=== PATIENT | female | born 1945 | race Caucasian/White ===

== ENCOUNTER → 2025-01-05 13:14 | Outpatient (REF) | payer MEDICARE, OTHER, SELFPAY | LOC: WDC 13:14 | PROVIDERS: ATTENDING PHYSICIAN Student in an Organized Health Care Education/Training Program; FAMILY PHYSICIAN Internal Medicine | DX: Z12.31 Encounter for screening mammogram for malignant neoplasm of breast (principal) | CPT/HCPCS: 77063; 77067 ==

== ENCOUNTER 2025-01-23 18:08 | Emergency (ER) | payer MEDICARE, OTHER, SELFPAY ==
[2025-01-23 18:14] VITALS: BP 148/70
[2025-01-23 20:51] VITALS: BMI 34.9
[2025-01-23 20:54] LABS: % Basophils 0.3 % (0-2); % Immature Granulocytes 0.1 % (0-0.5); % Lymphocytes 22.4 % (20.5-51.1); % Monocytes 5.8 % (1.7-9.3); % Neutrophils 69.4 % (42.2-75.2); Absolute Eosinophils 0.1 10^3/uL (0-0.7); Absolute Lymphocytes 1.6 10^3/uL (1.2-3.4); Absolute Monocytes 0.4 10^3/uL (0.1-0.6); Absolute Neutrophils 4.8 10^3/uL (1.4-6.5); Hematocrit 33.6 % (37.0-47.0); Hemoglobin 11.2 g/dL (12.0-16.0); Mean Corp Hgb Conc. 33.3 g/dL (33.0-37.0); Mean Corpuscular Hgb 29.6 pg (27.0-31.0); Mean Corpuscular Volume 88.7 fL (81.0-99.0); Mean Platelet Volume 9.3 fL (7.4-10.4); Nucleated Red Blood Cells % 0 %; Platelet Count 213 10^3/uL (130-400); Red Blood Cell Count 3.79 10^6/uL (4.20-5.40); Red Cell Dist. Width 13.5 % (11.5-14.5)
[2025-01-23 21:09] LABS: ALT (SGPT) 18 U/L (0-35); AST (SGOT) 20 U/L (14-36); Albumin 4.5 g/dl (3.5-5.0); Alkaline Phosphatase 93 U/L (38-126); Blood Urea Nitrogen 27 mg/dl (7-17); Calcium 10.1 mg/dl (8.4-10.2); Carbon Dioxide 27 mmol/L (22-30); Chloride 102 mmol/L (98-107); Estimated Creatinine Clearance 32 ml/min; Glucose 104 mg/dl (70-99); Magnesium 2.3 mg/dl (1.6-2.3); Potassium 4.4 mmol/L (3.5-5.1); Sodium 138 mmol/L (135-145); Total Bilirubin 0.5 mg/dl (0.2-1.3); Total Protein 7.6 g/dl (6.3-8.2); eGFR 46.62
[2025-01-23 21:21] LABS: Troponin I < 0.012 ng/ml
[2025-01-23 21:43] VITALS: BP 117/74
[2025-01-23] MEDS: MAALOX 40 PO (22:35)
--- NOTE | 2025-01-23 22:55 | ED.GENMED ---
History of Present Illness
General
Chief Complaint: Back Pain
Source: patient
Exam Limitations: none and other (Dutch speaker rerecording mixer used)
Time Seen by Provider: 01/23/25 19:37
Nursing documentation reviewed up to this point in time: agreed with
History of Present Illness
History of Present Illness:
79-year-old female presenting to the emergency department today with concerns of a burning discomfort initially to the chest now up to the upper back. Previously seen in urgent care yesterday had imaging without emergent findings. Denies any
nausea vomiting shortness of breath.
Past History
Past History
ED Past Medical History: GERD and HTN
ED Past Surgical History: None
Social History
Tobacco: Non-smoker
Alcohol: None
Drug: None
Personal:
Living: with family
Employment: Employed
Family History
Family History: Negative Early CAD
Review of Systems
Review of Systems
Allergies reviewed?: Yes
All Other Systems: ROS reviewed and negative except as documented in HPI and ROS
Phy Exam
Physical Exam
Physical Exam:
GENERAL: Alert , in no apparent distress
EYE: pupils equal and reactive
NECK: Supple, no significant adenopathy.
ENT: o/p clr, mmm.
CARDIAC: Regular rate and rhythm .
LUNGS: Clear breath sounds bilaterally, no acute respiratory distress, no wheezes/rales/rhonchi
ABDOMEN: Soft, without focal tenderness, no r/g, no cvat
NEUROLOGICAL: Alert and oriented, no focal neuro deficits
SKIN: Warm and dry, skin intact.
MUSCULOSKELETAL: No edema, well perfused.
PSYCH: Normal and appropriate interaction.
Course
Orders/Labs/Results
Orders:
Orders
01/23/25 20:27
Electrocardiogram (*1) Stat
Reason for Study: Other
Other Reason for Exam: chest pain
EKG- Treatment ONCE
01/23/25 20:39
Complete Blood Count/With Diff Urgent
Comprehensive Metabolic Panel Urgent
Magnesium Urgent
Troponin I Urgent
01/23/25 22:23
Mag Hydrox/Al Hydrox/Simeth [Maalox] 30 ml Phenobarb/Hyoscy/Atropine/Scop [] 10 ml PO NOW
01/23/25 22:29
Mag Hydrox/Al Hydrox/Simeth [Maalox] 30 ml .ROUTE .STK-MED ONE
Phenobarb/Hyoscy/Atropine/Scop [] 10 ml .ROUTE .STK-MED ONE
Abnormal Lab Results
01/23/25
20:39
RBC 3.79 L 10^6/uL
(4.20-5.40)
Hgb 11.2 L g/dL
(12.0-16.0)
Hct 33.6 L %
(37.0-47.0)
BUN 27 H mg/dl
(7-17)
Creatinine 1.2 H mg/dL
(0.6-1.0)
Glucose 104 H mg/dl
(70-99)
01/23/25 20:39
01/23/25 20:39
Vital Signs
Initial and Last Documented VS:
Initial Vital Signs
Temp Pulse Resp BP Pulse Ox
98.6 F 71 18 148/70 98
01/23/25 18:14 01/23/25 18:14 01/23/25 18:14 01/23/25 18:14 01/23/25 18:14
Last Documented Vital Signs
Temp Pulse Resp BP Pulse Ox
98.6 F 68 16 117/74 98
01/23/25 18:14 01/23/25 21:43 01/23/25 21:43 01/23/25 21:43 01/23/25 21:43
MDM/Problems Addressed
MDM/Problems Addressed:
79-year-old female presenting to the emergency department today with concerns of a burning discomfort mainly to her mid upper back initially had some discomfort to the chest area that she thought was reflux. Ongoing for 3 days. Feels almost like a
sunburn she claims. Imaging was done at urgent care yesterday without emergent findings. Vital signs normal on arrival here. Patient no distress normal physical examination no signs of rash no evidence of shingles. Labs unremarkable troponin
negative EKG without emergent findings. Patient was given a GI cocktail with significant improvement of symptoms. She was advised for close outpatient follow-up but otherwise stable for discharge. Return precautions given.
*Critical Care Note
Total Time (30-74mins, 75-104mins- exclusive of procedures): Not Applicable
ED Attending Note
-
Portions of this chart may have been created with voice recognition software.� Occasional wrong word or��sound alike� substitutions may have occurred due to the inherent limitations of voice recognition software.
Discharge Plan
Departure
Patient Disposition: Home (Routine Discharge)
Date of Disposition: 01/23/25
Time of Disposition: 23:17
Patient with high blood pressure during this ER visit?: No
Condition: Good
Covid-19: Not Applicable
Discharge Problem:
Back pain
Instructions: Upper Back Pain (DC)
Prescriptions:
New
famotidine 20 mg tablet
20 mg PO BID 7 Days Qty: 14 0RF
No Action
losartan 50 MG tablet
80 mg PO DAILY
bupropion HCl [Wellbutrin SR] 150 MG tablet sustained-release 12 hr
150 mg PO DAILY
metoprolol tartrate 50 MG tablet
50 mg PO DAILY
fluoxetine 20 MG capsule
40 mg PO DAILY
valsartan [Diovan] 160 MG capsule
160 mg PO DAILY Qty: 14 0RF
omeprazole magnesium [Prilosec OTC] 20 MG tablet,delayed release (DR/EC)
20 mg PO DAILY Qty: 20 0RF
dicyclomine 10 MG capsule
10 mg PO QIDPRN PRN (Reason: pain) Qty: 10 0RF
Referrals:
Wesley Whitlock MD [Family Provider] -
Bree Jaquez DO [Active] - Call in 1-3 days for appt
Activity Restrictions/Additional Instructions:
You came to the emergency department today with concerns of a burning discomfort. This seemed to improve with a GI cocktail making a a GI cause much more likely. Otherwise your labs did not show any emergent findings. Your cardiac workup was
normal. Please follow closely with your primary care doctor and GI. Return for any worsening, new or concerning symptoms.
Interventions
Interventions:
*Risk Screen - Suicide Last Done: 01/23/25 20:51
*General Assessment Last Done: 01/23/25 20:51
*Neglect/Abuse Screening Last Done: 01/23/25 20:51
*ED COVID-19 Vaccine History Last Done: 01/23/25 18:14
ED-Musculoskeletal Assessment Last Done: 01/23/25 20:51
Discharge Date and Time
Print Language: UPPER SORBIAN
== END 2025-01-24 00:01 | disposition home or self-care (01) ==
LOC: EMR 18:08
PROVIDERS: Physician Assistant; EMERGENCY PHYSICIAN Student in an Organized Health Care Education/Training Program; FAMILY PHYSICIAN Internal Medicine
DX: M54.9 Dorsalgia, unspecified (principal)
CPT/HCPCS: 99284; 80053; 83735; 84484; 85025; 93005

== ENCOUNTER 2025-02-13 18:33 | Emergency (ER) | payer MEDICARE, OTHER, SELFPAY ==
[2025-02-13 18:43] VITALS: BP 157/75
[2025-02-13 18:54] LABS: % Basophils 0.4 % (0-2); % Eosinophils 1.5 % (0-6); % Lymphocytes 23.6 % (20.5-51.1); % Monocytes 8.7 % (1.7-9.3); % Neutrophils 65.8 % (42.2-75.2); Absolute Eosinophils 0.1 10^3/uL (0-0.7); Absolute Lymphocytes 1.1 10^3/uL (1.2-3.4); Absolute Monocytes 0.4 10^3/uL (0.1-0.6); Absolute Neutrophils 3.1 10^3/uL (1.4-6.5); Hemoglobin 10.5 g/dL (12.0-16.0); Mean Corp Hgb Conc. 33.9 g/dL (33.0-37.0); Mean Corpuscular Hgb 29.4 pg (27.0-31.0); Mean Corpuscular Volume 86.8 fL (81.0-99.0); Mean Platelet Volume 9.1 fL (7.4-10.4); Nucleated Red Blood Cells % 0 %; Platelet Count 186 10^3/uL (130-400); Red Blood Cell Count 3.57 10^6/uL (4.20-5.40); Red Cell Dist. Width 13.8 % (11.5-14.5); White Blood Cell Count 4.7 10^3/uL (4.8-10.8)
[2025-02-13 19:00] VITALS: BP 150/56
--- NOTE | 2025-02-13 19:00 | ED.GENMED ---
History of Present Illness
General
Chief Complaint: Fall
Source: patient, family (son at bedside) and per diem interpreter (Language line [id number])
Exam Limitations: none
Time Seen by Provider: 02/13/25 18:59
Nursing documentation reviewed up to this point in time: agreed with
History of Present Illness
History of Present Illness:
79 yo female with h/o HTN, GERD, Depression presents per son, for no appetite past week, every time she eats she vomits. Weight loss of 15-20 lbs past 3 weeks. Nausea. Pt states 'my esophagus hurts day and night' 'and the pain radiates to my back.'
She has been constipated, last normal BM after MOM one week ago, had very small BM this a.m.
Saw PCP 3 weeks ago for similar symptoms. Started on Protonix and Famotidine.
Past History
Past History
ED Past Medical History: GERD and HTN
ED Past Surgical History: None
Social History
Tobacco: Non-smoker
Alcohol: None
Drug: None
Personal:
Living: with family
Employment: Employed
Family History
Family History: Negative Early CAD
Review of Systems
Review of Systems
Allergies reviewed?: Yes
All Other Systems: ROS reviewed and negative except as documented in HPI and ROS
Constitutional: Reports weight loss; Denies fever or chills
EENT: Denies sore throat
Respiratory: Denies cough or trouble breathing
Cardiac: Denies chest pain or palpitations
ABD/GI: Reports abdominal pain, nausea, constipated and anorexia; Denies vomiting, diarrhea, bloody stools or black stools
: Denies dysuria, frequency, difficulty voiding or urgency
Musculoskeletal: Reports no symptoms
Skin: Reports no symptoms
Neurological: Reports no symptoms
Phy Exam
Physical Exam
Physical Exam:
GENERAL: No acute distress. A&Ox3.
CONSTITUTIONAL: Afebrile.
EYES: clear, conjunctivae normal
ENMT: moist mucus membranes, Pharynx nl
RESPIRATORY: Regular respirations, nonlabored, lungs clear.
CARDIOVASCULAR: Regular rate and rhythm, no murmurs, no rubs.
GI: Soft, generally mildly tender, normal BS
MUSCULOSKELETAL: Moves with ease. Well perfused.
SKIN: Warm, dry, pink
PSYCH: Anxious mood and affect. Well kept, interactive and appropriate
NEUROLOGIC: Awake, alert and oriented. No focal neurological deficits
Course
Orders/Labs/Results
Orders:
Orders
02/13/25 18:35
Electrocardiogram (*1) Urgent
Reason for Study: Vertigo / Dizzy
EKG- Treatment ONCE
02/13/25 18:41
CMP [Comprehensive Metabolic Panel] Urgent
Complete Blood Count/With Diff Urgent
Lipase Urgent
Comment: ADD ON
Troponin I Urgent
02/13/25 19:24
Add On- LAB Urgent
Tests Added?: Lipase
CT Abd/Pel (IV only)-DH only Urgent
Comment:
Reason For Exam: constipation, abdominal pain, vomiting
02/13/25 19:43
Urinalysis Reflex To Culture Urgent
Date Specimen was Collected: 02/13/25
Time Specimen was Collected: 19:42
Abnormal Lab Results
02/13/25
18:41
WBC 4.7 L 10^3/uL
(4.8-10.8)
RBC 3.57 L 10^6/uL
(4.20-5.40)
Hgb 10.5 L g/dL
(12.0-16.0)
Hct 31.0 L %
(37.0-47.0)
Absolute Lymphs (auto) 1.1 L 10^3/uL
(1.2-3.4)
Sodium 134 L mmol/L
(135-145)
BUN 23 H mg/dl
(7-17)
Creatinine 1.2 H mg/dL
(0.6-1.0)
Glucose 123 H mg/dl
(70-99)
02/13/25 18:41
02/13/25 18:41
Vital Signs
Initial and Last Documented VS:
Initial Vital Signs
Temp Pulse Resp Pulse Ox
98.5 F 69 18 95
02/13/25 18:34 02/13/25 18:34 02/13/25 18:34 02/13/25 18:34
Last Documented Vital Signs
Temp Pulse Resp BP Pulse Ox
98.5 F 71 14 141/69 98
02/13/25 18:34 02/13/25 21:00 02/13/25 21:00 02/13/25 21:00 02/13/25 21:00
MDM/Problems Addressed
Differential Diagnosis Includes:
Gastritis, GERD, obstruction, pancreatitis, constipation
MDM/Problems Addressed:
79 yo female with h/o HTN, GERD, Depression presents per son, for no appetite past week, every time she eats she vomits. Weight loss of 15-20 lbs past 3 weeks. Nausea, last emesis . Pt states 'my esophagus hurts day and night' 'and the pain
radiates to my back.' She has been constipated, last normal BM after MOM one week ago, had very small BM this a.m.
Saw PCP 3 weeks ago for similar symptoms. Started on Protonix and Famotidine.
EKG NSR
9:10 PM:
CBC with no clinically significant abnormality
CMP with no clinically significant abnormality, consistent with her baseline
Lipase within normal limits
Troponin negative
CT abdomen pelvis with IV contrast radiology report read: IMPRESSION:
There is mild diffuse gaseous wall thickening which can be seen with gastritis.
Mild colonic stool burden.
Results discussed with son and patient. Copy of CT report given to son.
Pt smiling, thankful
Son now tells me she has appointment for upper Endoscopy at this end of this month
*EKG
EKG Intrepretation Date: 02/13/25
Interpretation: normal
Comparison EKG: no changes
Heart Rate: 70
Rate: normal
Rhythm: sinus
[place]: normal axis
Interval: normal interval
QRS Pattern: normal QRS
Ischemia: no ischemia
*Critical Care Note
Total Time (30-74mins, 75-104mins- exclusive of procedures): Not Applicable
ED Attending Note
-
Portions of this chart may have been created with voice recognition software.� Occasional wrong word or��sound alike� substitutions may have occurred due to the inherent limitations of voice recognition software.
Discharge Plan
Departure
Patient Disposition: Home (Routine Discharge)
Date of Disposition: 02/13/25
Time of Disposition: 21:18
Patient with high blood pressure during this ER visit?: No
Condition: Good
Discharge Problem:
Gastritis
Instructions: Gastritis
Prescriptions:
No Action
fluoxetine 40 mg Capsule
40 mg PO DAILY
atorvastatin 40 mg Tablet
40 mg PO HS
buspirone 5 mg Tablet
5 mg PO HS
famotidine 40 mg Tablet
40 mg PO DAILY
amlodipine 5 mg Tablet
5 mg PO DAILY
bupropion HCl 100 mg Tablet Sustained-Release 12 Hr
100 mg PO DAILY
pantoprazole 40 mg Tablet,Delayed Release (Dr/Ec)
40 mg PO HS
doxazosin 4 mg Tablet
2 mg PO BID
metoprolol succinate 25 mg Tablet Extended Release 24 Hr
25 mg PO HS
Referrals:
Your, GI doctor [Other] - Keep scheduled appt
Wesley Whitlock MD [Family Provider] -
Activity Restrictions/Additional Instructions:
As we discussed, nothing worrisome in your workup here tonight.
Keep your appointment for your Endoscopy later this month.
Take your Pantoprazole and Famotidine as directed.
Interventions
Interventions:
*Risk Screen - Suicide Last Done: 02/13/25 18:44
*General Assessment Last Done: 02/13/25 18:34
*Neglect/Abuse Screening Last Done: 02/13/25 18:44
*ED- Fall Risk Assessment Last Done: 02/13/25 18:34
*ED COVID-19 Vaccine History Last Done: 02/13/25 18:34
*Nursing Disposition Last Done: 02/13/25 22:17
ED-Musculoskeletal Assessment Last Done: 02/13/25 18:44
ED- Neurological Assessment Last Done: 02/13/25 18:34
ED-Skin Assessment Last Done: 02/13/25 18:34
Discharge Date and Time
Discharge Date/Time: 02/13/25 22:20
Print Language: BULGARIAN
[2025-02-13 19:06] LABS: ALT (SGPT) 20 U/L (0-35); AST (SGOT) 22 U/L (14-36); Albumin 4.7 g/dl (3.5-5.0); Alkaline Phosphatase 89 U/L (38-126); Blood Urea Nitrogen 23 mg/dl (7-17); Calcium 9.6 mg/dl (8.4-10.2); Carbon Dioxide 25 mmol/L (22-30); Chloride 99 mmol/L (98-107); Glucose 123 mg/dl (70-99); Potassium 4.1 mmol/L (3.5-5.1); Sodium 134 mmol/L (135-145); Total Bilirubin 0.5 mg/dl (0.2-1.3); Total Protein 7.2 g/dl (6.3-8.2); eGFR 46.62
[2025-02-13 19:11] LABS: Troponin I < 0.012 ng/ml
[2025-02-13 19:54] LABS: Urine Albumin Negative (Neg - Trace); Urine Bilirubin Negative (Negative); Urine Character Clear (Clear); Urine Color Yellow; Urine Glucose Negative (Negative); Urine Ketone Negative (Negative); Urine Leukocyte Negative (Negative); Urine Nitrite Negative (Negative); Urine Occult Blood Negative (Negative); Urine Urobilinogen Negative (Neg - 1+)
[2025-02-13 19:55] LABS: Lipase 213 U/L (23-300)
[2025-02-13 20:20] VITALS: BP 167/69
[2025-02-13 21:00] VITALS: BP 141/69
== END 2025-02-13 22:20 | disposition home or self-care (01) ==
LOC: EMR 18:33
PROVIDERS: Registered Nurse; EMERGENCY PHYSICIAN Emergency Medicine; FAMILY PHYSICIAN Internal Medicine
DX: K29.70 Gastritis, unspecified, without bleeding (principal); I10 Essential (primary) hypertension; K21.9 Gastro-esophageal reflux disease without esophagitis; F32.A Depression, unspecified
CPT/HCPCS: 99285; 74177; 80053; 81003; 83690; 84484; 85025; 93005; Q9967

== ENCOUNTER 2025-02-15 20:04 | Emergency (ER) | payer MEDICARE, OTHER, SELFPAY ==
[2025-02-15 20:06] VITALS: BP 136/70
[2025-02-15 20:10] VITALS: BP 136/70
[2025-02-15 20:34] LABS: % Basophils 0.4 % (0-2); % Eosinophils 1.6 % (0-6); % Immature Granulocytes 0.4 % (0-0.5); % Lymphocytes 23.8 % (20.5-51.1); % Monocytes 8.6 % (1.7-9.3); % Neutrophils 65.2 % (42.2-75.2); Absolute Eosinophils 0.1 10^3/uL (0-0.7); Absolute Lymphocytes 1.2 10^3/uL (1.2-3.4); Absolute Monocytes 0.4 10^3/uL (0.1-0.6); Absolute Neutrophils 3.3 10^3/uL (1.4-6.5); Hematocrit 31.7 % (37.0-47.0); Hemoglobin 10.6 g/dL (12.0-16.0); Mean Corp Hgb Conc. 33.4 g/dL (33.0-37.0); Mean Corpuscular Hgb 29.2 pg (27.0-31.0); Mean Corpuscular Volume 87.3 fL (81.0-99.0); Mean Platelet Volume 9.1 fL (7.4-10.4); Nucleated Red Blood Cells % 0 %; Platelet Count 191 10^3/uL (130-400); Red Blood Cell Count 3.63 10^6/uL (4.20-5.40); Red Cell Dist. Width 13.9 % (11.5-14.5)
[2025-02-15 20:47] LABS: ALT (SGPT) 20 U/L (0-35); AST (SGOT) 23 U/L (14-36); Albumin 4.6 g/dl (3.5-5.0); Alkaline Phosphatase 89 U/L (38-126); Blood Urea Nitrogen 26 mg/dl (7-17); Calcium 9.5 mg/dl (8.4-10.2); Carbon Dioxide 24 mmol/L (22-30); Chloride 99 mmol/L (98-107); Estimated Creatinine Clearance 33 ml/min; Glucose 98 mg/dl (70-99); Sodium 135 mmol/L (135-145); Total Bilirubin 0.6 mg/dl (0.2-1.3); Total Protein 6.9 g/dl (6.3-8.2); eGFR 42.35
[2025-02-15 20:58] LABS: Troponin I 0.013 ng/ml
[2025-02-15 21:01] VITALS: BP 98/71
--- NOTE | 2025-02-15 21:46 | ED.GENMED ---
History of Present Illness
<William Villasenor, DO - Last Filed: 02/15/25 23:01>
General
Chief Complaint: Psychiatric Problem
Source: patient, family (Son) and cleaning and maintenance worker (Superintendent Job giving information from patient when she cannot speak Yoruba. She speaks Bahraini)
Exam Limitations: none
Time Seen by Provider: 02/15/25 21:25
Nursing documentation reviewed up to this point in time: agreed with
History of Present Illness
History of Present Illness:
79-year-old female presents emergency department due to anxiety, concern about her blood pressure, and chest tightness has been going on for 3 weeks. Her symptoms are intermittent.
Past History
<William Villasenor, DO - Last Filed: 02/15/25 23:01>
Past History
ED Past Medical History: GERD and HTN
ED Past Surgical History: None
Social History
Tobacco: Non-smoker
Alcohol: None
Drug: None
Personal:
Living: with family
Employment: Employed
Family History
Family History: Negative Early CAD
Review of Systems
<William Villasenor, DO - Last Filed: 02/15/25 23:01>
Review of Systems
Allergies reviewed?: Yes
All Other Systems: Not applicable
Constitutional: Reports no symptoms
EENT: Reports no symptoms
Respiratory: Reports no symptoms
Cardiac: Reports chest pain
ABD/GI: Reports no symptoms
: Reports no symptoms
Musculoskeletal: Reports no symptoms
Skin: Reports no symptoms
Neurological: Reports no symptoms
Endocrine: Reports no symptoms
Hematologic/Lymphatic: Reports no symptoms
Psychiatric: Reports no symptoms
Phy Exam
<William Villasenor, DO - Last Filed: 02/15/25 23:01>
Physical Exam
Physical Exam:
Physical Exam
General: no apparent distress, not acutely ill
Neck: supple. no meningeal signs. normal posterior pharynx
Heart: s1/s2 regular rate and rhythm, no murmur. equal radial
pulses.
HEENT: Pupils equal round reactive to light, EOMI
Lungs: no acute respiratory distress. clear bilaterally
Abdomen: normal bowel sounds. not tender. no CVAT
Neuro: alert and oriented. no focal neurological deficits cranial nerves II through XII intact
Skin: no rash
Psychiatric: well kept. interactive and cooperative
Extremities: no edema. no calf tenderness. negative homans. good distal pulses
Course
<William Villasenor, DO - Last Filed: 02/15/25 23:01>
Orders/Labs/Results
Orders:
Orders
02/15/25 20:10
EKG [Electrocardiogram (*1)] Urgent
Reason for Study: Tachycardia
02/15/25 20:11
EKG- Treatment ONCE
02/15/25 20:19
Complete Blood Count/With Diff Urgent
Comprehensive Metabolic Panel Urgent
Troponin I Urgent
02/15/25 21:43
Crisis Consult Urgent
Reason for Consult: anxiety, not taking medications
02/15/25 22:00
Urinalysis Reflex To Culture Urgent
Date Specimen was Collected: 02/15/25
Time Specimen was Collected: 20:26
02/15/25 23:24
Troponin I Urgent
02/16/25 00:25
EKG [Electrocardiogram (*1)] Urgent
Reason for Study: Tachycardia
EKG- Treatment ONCE
02/16/25 02:24
Troponin I Urgent
Abnormal Lab Results
02/15/25
20:19
RBC 3.63 L 10^6/uL
(4.20-5.40)
Hgb 10.6 L g/dL
(12.0-16.0)
Hct 31.7 L %
(37.0-47.0)
BUN 26 H mg/dl
(7-17)
Creatinine 1.3 H mg/dL
(0.6-1.0)
02/15/25 20:19
02/15/25 20:19
Vital Signs
Initial and Last Documented VS:
Initial Vital Signs
Temp Pulse Resp BP Pulse Ox
98.3 F 72 16 136/70 95
02/15/25 20:06 02/15/25 20:06 02/15/25 20:06 02/15/25 20:06 02/15/25 20:06
Last Documented Vital Signs
Temp Pulse Resp BP Pulse Ox
98.3 F 60 17 117/61 94
02/15/25 20:06 02/16/25 03:00 02/16/25 03:00 02/16/25 02:25 02/16/25 03:00
<Ulysses Medina, DO - Last Filed: 02/16/25 03:54>
Orders/Labs/Results
Orders:
Orders
02/15/25 20:10
EKG [Electrocardiogram (*1)] Urgent
Reason for Study: Tachycardia
02/15/25 20:11
EKG- Treatment ONCE
02/15/25 20:19
Complete Blood Count/With Diff Urgent
Comprehensive Metabolic Panel Urgent
Troponin I Urgent
02/15/25 21:43
Crisis Consult Urgent
Reason for Consult: anxiety, not taking medications
02/15/25 22:00
Urinalysis Reflex To Culture Urgent
Date Specimen was Collected: 02/15/25
Time Specimen was Collected: 20:26
02/15/25 23:24
Troponin I Urgent
02/16/25 00:25
EKG [Electrocardiogram (*1)] Urgent
Reason for Study: Tachycardia
EKG- Treatment ONCE
02/16/25 02:24
Troponin I Urgent
Abnormal Lab Results
02/15/25
20:19
RBC 3.63 L 10^6/uL
(4.20-5.40)
Hgb 10.6 L g/dL
(12.0-16.0)
Hct 31.7 L %
(37.0-47.0)
BUN 26 H mg/dl
(7-17)
Creatinine 1.3 H mg/dL
(0.6-1.0)
02/15/25 20:19
02/15/25 20:19
Vital Signs
Initial and Last Documented VS:
Initial Vital Signs
Temp Pulse Resp BP Pulse Ox
98.3 F 72 16 136/70 95
02/15/25 20:06 02/15/25 20:06 02/15/25 20:06 02/15/25 20:06 02/15/25 20:06
Last Documented Vital Signs
Temp Pulse Resp BP Pulse Ox
98.3 F 60 17 117/61 94
02/15/25 20:06 02/16/25 03:00 02/16/25 03:00 02/16/25 02:25 02/16/25 03:00
<William Villasenor DO - Last Filed: 02/15/25 23:01>
MDM/Problems Addressed
Differential Diagnosis Includes:
ACS, anxiety
MDM/Problems Addressed:
79 yo female with anxiety, chest tightness. VSS. Concerned about her BP. Stable in ED. patient seen by crisis, no indication for 302. She will follow-up with outpatient resources if repeat troponin is negative.. Son would like her to go
inpatient, which she does agree to. Will work with crisis for possible bed placement.
Chronic conditions affecting care: HTN
<William Villasenor, DO - Last Filed: 02/15/25 23:01>
*Pulse Oximetry
Patient hypoxic: no
*EKG
Interpreted by ED Provider?: Yes
EKG Intrepretation Date: 02/15/25
EKG Intrepretation Time: 20:42
Interpretation: abnormal
Comparison EKG: no changes
Heart Rate: 77
Rate: normal
Rhythm: sinus
[place]: normal axis
Interval: normal interval
QRS Pattern: normal QRS
Ischemia: no ischemia
*Exhibit Carpenter Interpretation
Rate: normal
Interpretation: normal
Heart Rate: 77
Rhythm: sinus
*Critical Care Note
Total Time (30-74mins, 75-104mins- exclusive of procedures): Not Applicable
Data Reviewed
Review of Other/Old Records Reveals: Radiology Studies (CT abdomen pelvis on 02/13/2025 shows gastritis)
Source: records
<William Villasenor, DO - Last Filed: 02/15/25 23:01>
Patient Management
Social determinants of health affecting care: Living situation
<Ulysses Medina, DO - Last Filed: 02/16/25 03:54>
Update Note
Update Note:
Received signout from previous provider. Troponin pending.
Patient seen by crisis. They gave her outpatient resources. They have determined that she does not need inpatient hospitalization. This plan was discussed with patient and son. They are in agreement.
Slight bump in troponin seen. EKG unchanged.
Discussed disposition with son and patient. We will repeat troponin.
Third troponin is improved.
ED Attending Note
<William Villasenor, DO - Last Filed: 02/15/25 23:01>
-
Portions of this chart may have been created with voice recognition software.� Occasional wrong word or��sound alike� substitutions may have occurred due to the inherent limitations of voice recognition software.
Discharge Plan
Departure
Patient Disposition: Home (Routine Discharge)
Date of Disposition: 02/15/25
Time of Disposition: 22:59
Patient with high blood pressure during this ER visit?: Yes
Condition: Good
Discharge Problem:
Chest pain, Anxiety
Instructions: Chest Pain CBC Follow Up, BLOOD PRESSURE
Prescriptions:
No Action
fluoxetine 40 mg Capsule
40 mg PO DAILY
atorvastatin 40 mg Tablet
40 mg PO HS
buspirone 5 mg Tablet
5 mg PO HS
famotidine 40 mg Tablet
40 mg PO DAILY
amlodipine 5 mg Tablet
5 mg PO DAILY
bupropion HCl 100 mg Tablet Sustained-Release 12 Hr
100 mg PO DAILY
pantoprazole 40 mg Tablet,Delayed Release (Dr/Ec)
40 mg PO HS
doxazosin 4 mg Tablet
2 mg PO BID
metoprolol succinate 25 mg Tablet Extended Release 24 Hr
25 mg PO HS
Referrals:
Wesley Whitlock MD [Family Provider] -
Interventions
Interventions:
*Risk Screen - Suicide Last Done: 02/15/25 20:06
*General Assessment Last Done: 02/15/25 20:06
*Neglect/Abuse Screening Last Done: 02/15/25 20:06
*ED- Fall Risk Assessment Last Done: 02/15/25 20:06
*ED COVID-19 Vaccine History Last Done: 02/15/25 20:06
ED-Psychological Assessment Last Done: 02/15/25 20:24
Discharge Date and Time
Print Language: NAURUAN
[2025-02-15 22:00] VITALS: BP 109/68
[2025-02-15 22:10] LABS: Urine Albumin Negative (Neg - Trace); Urine Bilirubin Negative (Negative); Urine Character Clear (Clear); Urine Color Yellow; Urine Glucose Negative (Negative); Urine Ketone Negative (Negative); Urine Leukocyte Negative (Negative); Urine Nitrite Negative (Negative); Urine Occult Blood Negative (Negative); Urine Urobilinogen Negative (Neg - 1+); Urine pH 6.5 (5.0-9.0)
[2025-02-15 23:01] VITALS: BP 96/74
[2025-02-16 00:05] LABS: Troponin I 0.017 ng/ml
[2025-02-16 02:25] VITALS: BP 117/61
[2025-02-16 03:11] LABS: Troponin I 0.014 ng/ml
== END 2025-02-16 04:01 | disposition home or self-care (01) ==
LOC: EMR 20:04
PROVIDERS: Student in an Organized Health Care Education/Training Program; EMERGENCY PHYSICIAN Emergency Medicine; FAMILY PHYSICIAN Internal Medicine
DX: F41.9 Anxiety disorder, unspecified (principal); R07.89 Other chest pain; I10 Essential (primary) hypertension
CPT/HCPCS: 99284; 80053; 81003; 84484; 85025; 93005

== ENCOUNTER 2025-02-16 22:09 | Emergency (ER) | payer MEDICARE, OTHER, SELFPAY ==
[2025-02-16 22:14] VITALS: BP 122/54; BMI 26.8
[2025-02-16 22:16] VITALS: BP 122/54
[2025-02-16 23:00] VITALS: BP 110/67
--- NOTE | 2025-02-16 23:29 | ED.GENMED ---
History of Present Illness
General
Chief Complaint: Blood Pressure Problem
Source: patient and records
Exam Limitations: none
Time Seen by Provider: 02/16/25 22:37
Nursing documentation reviewed up to this point in time: agreed with
History of Present Illness
History of Present Illness:
Seen with the aid of [place] head sawyer automatic via [employer] head sawyer automatic phone
Third visit in the past 3 to 4 days, patient states she had a panic attack today thought her blood pressure was going up thought she may have a stroke, the triage note states patient was making comments of think she was going to , apparently was
seen by crisis recently given some resources, blood pressure normal here, calm anxious cooperative when interviewed by myself and the head sawyer automatic
Past History
Past History
ED Past Medical History: GERD, HTN and Psychiatric
ED Past Surgical History: None
Social History
Tobacco: Non-smoker
Alcohol: None
Drug: None
Personal:
Living: with family
Employment: Employed
Family History
Family History: Negative Early CAD
Phy Exam
Physical Exam
Physical Exam:
Physical Exam
General: no apparent distress, not acutely ill
Neck: No jaundice
Heart: s1/s2 regular rate and rhythm, no murmur. equal radial pulses.
Lungs: no acute respiratory distress. clear bilaterally
Abdomen: Nontender
Neuro: alert and oriented. no focal neurological deficits
Skin: no rash
Psychiatric: Anxious but cooperative
Extremities: no edema.
Course
Orders/Labs/Results
Orders:
Orders
02/16/25 23:10
Crisis Consult Urgent
Reason for Consult: ancity
02/17/25 00:07
Lorazepam [Ativan] 0.5 mg PO NOW STA
Vital Signs
Initial and Last Documented VS:
Initial Vital Signs
Temp Pulse Resp BP Pulse Ox
98 F 76 26 122/54 100
02/16/25 22:14 02/16/25 22:14 02/16/25 22:14 02/16/25 22:14 02/16/25 22:14
Last Documented Vital Signs
Temp Pulse Resp BP Pulse Ox
98 F 74 18 105/68 98
02/16/25 22:14 02/17/25 00:30 02/17/25 00:30 02/17/25 00:00 02/16/25 23:45
MDM/Problems Addressed
Differential Diagnosis Includes:
Anxiety panic hypertensive urgency arrhythmia
MDM/Problems Addressed:
Anxiety hypertension
Chronic conditions affecting care: HTN and Psychiatric illness
Acute Exacerbation and/or Progression of Chronic Illness: HTN and Psychiatric illness
*Pulse Oximetry
Patient hypoxic: no
*Pipe Foreman Interpretation
Rate: normal
Interpretation: normal
Heart Rate: 78
Rhythm: sinus
*Critical Care Note
Total Time (30-74mins, 75-104mins- exclusive of procedures): Not Applicable
Data Reviewed
Review of Other/Old Records Reveals: Labs
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
Prescriptions/Medications Considered But Not Given:
Beta-lynda benzo
Update Note
Update Note:
Update patient blood work on her recent visits will not repeat will ask crisis to see her
[id number] reviewed with crisis patient cleared for discharge not suicidal,
Call to daughter Katelyn, to come pick her up she states that she needs to be admitted to a psychiatric hospital told her that she has been cleared for discharge, and that if she believes she needs to be in a mental health hospital she should come in
and do a 302 involuntary commitment
ED Attending Note
-
Portions of this chart may have been created with voice recognition software.� Occasional wrong word or��sound alike� substitutions may have occurred due to the inherent limitations of voice recognition software.
Discharge Plan
Departure
Patient Disposition: Home (Routine Discharge)
Date of Disposition: 02/17/25
Time of Disposition: 00:17
Patient with high blood pressure during this ER visit?: No
Condition: Good
Discharge Problem:
Anxiety
Instructions: Panic Attack ED, Anxiety in adults - ED discharge instructions, BLOOD PRESSURE
Prescriptions:
No Action
fluoxetine 40 mg Capsule
40 mg PO DAILY
atorvastatin 40 mg Tablet
40 mg PO HS
buspirone 5 mg Tablet
5 mg PO HS
famotidine 40 mg Tablet
40 mg PO DAILY
amlodipine 5 mg Tablet
5 mg PO DAILY
bupropion HCl 100 mg Tablet Sustained-Release 12 Hr
100 mg PO DAILY
pantoprazole 40 mg Tablet,Delayed Release (Dr/Ec)
40 mg PO HS
doxazosin 4 mg Tablet
2 mg PO BID
metoprolol succinate 25 mg Tablet Extended Release 24 Hr
25 mg PO HS
Referrals:
Wesley Whitlock MD [Family Provider] -
Interventions
Interventions:
*Risk Screen - Suicide Last Done: 02/16/25 22:14
*General Assessment Last Done: 02/16/25 22:14
*Neglect/Abuse Screening Last Done: 02/16/25 22:14
*ED COVID-19 Vaccine History Last Done: 02/16/25 22:14
ED- Cardiac Assessment Last Done: 02/16/25 23:37
ED- Neurological Assessment Last Done: 02/16/25 23:37
ED- Pulmonary Assessment Last Done: 02/16/25 23:37
Discharge Date and Time
Print Language: HUNGARIAN
[2025-02-17] VITALS: BP 105/68
[2025-02-17] MEDS: ATIVAN 0.5 MG PO (00:19)
[2025-02-17 01:00] VITALS: BP 97/76
[2025-02-17 04:00] VITALS: BP 119/74
--- NOTE | 2025-02-17 04:05 | ED.ADDNOTE ---
ED Addendum
ED Addendum
ED Addendum Note:
Care of patient was transitioned from Dr. John pending crisis evaluation. Patient cleared from crisis. Family attempted to file 302 but it was denied. Will prescribe short course of Ativan. Family will take her home
== END 2025-02-17 04:30 | disposition home or self-care (01) ==
LOC: EMR 22:09
PROVIDERS: EMERGENCY PHYSICIAN Emergency Medicine; FAMILY PHYSICIAN Internal Medicine
DX: F41.9 Anxiety disorder, unspecified (principal); I10 Essential (primary) hypertension
CPT/HCPCS: 99283

== ENCOUNTER 2025-02-20 11:45 | Emergency (ER) | payer MEDICARE, OTHER, SELFPAY ==
[2025-02-20 12:13] VITALS: BP 116/74
--- NOTE | 2025-02-20 12:35 | ED.GENMED ---
History of Present Illness
General
Chief Complaint: Crisis Evaluation
Source: patient and family
Exam Limitations: none
Time Seen by Provider: 02/20/25 12:30
History of Present Illness
History of Present Illness:
See MDM
Past History
Past History
ED Past Medical History: GERD, HTN and Psychiatric
ED Past Surgical History: None
Social History
Tobacco: Non-smoker
Alcohol: None
Drug: None
Personal:
Living: with family
Employment: Employed
Family History
Family History: Negative Early CAD
Phy Exam
Physical Exam
Physical Exam:
See MDM
Course
Orders/Labs/Results
Orders:
Orders
02/20/25 12:35
Crisis Consult Urgent
Reason for Consult: SI
Lorazepam [Ativan] 1 mg PO NOW STA
Vital Signs
Initial and Last Documented VS:
Initial Vital Signs
Temp Pulse Resp BP Pulse Ox
98.4 F 68 18 116/74 98
02/20/25 12:13 02/20/25 12:13 02/20/25 12:13 02/20/25 12:13 02/20/25 12:13
Last Documented Vital Signs
Temp Pulse Resp BP Pulse Ox
98.4 F 68 18 116/74 98
02/20/25 12:13 02/20/25 12:13 02/20/25 12:13 02/20/25 12:13 02/20/25 12:13
MDM/Problems Addressed
Differential Diagnosis Includes:
HPI and MDM Narrative:
79-year-old female presenting for evaluation of anxiety and depression. Patient has been to the emergency department several times for similar complaints but ended up signing herself out. During those times, she did not appear to be a danger to
herself. This time, patient was staring down the second floor stairwell and threatening to jump because she went to kill herself. Patient does admit to this. She wants to sign into psych facility. Patient has been here multiple times and had a
negative workup. She is medically cleared. Will have crisis evaluate. If patient decides to leave, I have a low threshold to place on 302
Physical exam
General: Well appearing and non-toxic
HEENT: protecting airway
Neck: appears supple
CV: No evidence of cyanosis
Resp: No accessory muscle use
Abd: Non-distended
Extremities: No deformities
Neuro: alert
Psych: Anxious and paranoid
Skin: Intact
Problems Addressed including Acute and Chronic Conditions affecting care:
1. Anxiety and paranoia
Acuity: acute
Prognosis: stable
Details: It is gone to the point that she is turning her own life and has a plan. Will give dose of Ativan and have crisis evaluate for psychiatric placement
Differential Diagnosis (but not limited to): Anxiety, depression, suicidal thoughts
Testing considered: Repeat blood work but it was recently done a few days ago and without clinically relevant abnormalities
Drug therapy (if applicable): OTC meds, please see d/c instruction regarding Rx drugs
Amount and/or Complexity of Data Reviewed
Clinical info obtained from: Patient
External data reviewed: Recent blood work performed showing no evidence of clinically relevant abnormalities
Labs I independently reviewed (but not limited to): N/A
Radiology: N/A
Pulse Ox: not hypoxic
EKG independently reviewed: N/A
Telephone Directory Distributor Driver: N/A
Critical Care: N/A
Risk of Complication:
Social Determinants of health: Good social support
Discussed with other providers: Crisis
Escalation of Care includes Admit/Obs: Given her worsening depression and suicidal thoughts, crisis will work on inpatient facility
Occasional wrong word or 'sound a like' substitutions may have occurred due to the inherent limitations of voice recognition software. Read the chart carefully and recognize, using context, where substitutions have occurred.
*Critical Care Note
Total Time (30-74mins, 75-104mins- exclusive of procedures): Not Applicable
ED Attending Note
-
Portions of this chart may have been created with voice recognition software.� Occasional wrong word or��sound alike� substitutions may have occurred due to the inherent limitations of voice recognition software.
Discharge Plan
Departure
Patient Disposition: Psych Facility
Date of Disposition: 02/20/25
Time of Disposition: 12:41
Discharge Problem:
Suicidal thoughts
Prescriptions:
No Action
fluoxetine 40 mg Capsule
40 mg PO DAILY
atorvastatin 40 mg Tablet
40 mg PO HS
buspirone 5 mg Tablet
5 mg PO HS
famotidine 40 mg Tablet
40 mg PO DAILY
amlodipine 5 mg Tablet
5 mg PO DAILY
bupropion HCl 100 mg Tablet Sustained-Release 12 Hr
100 mg PO DAILY
pantoprazole 40 mg Tablet,Delayed Release (Dr/Ec)
40 mg PO HS
doxazosin 4 mg Tablet
2 mg PO BID
metoprolol succinate 25 mg Tablet Extended Release 24 Hr
25 mg PO HS
lorazepam [Ativan] 0.5 mg tablet
0.5 mg PO BID PRN (Reason: anxiety) Qty: 10 0RF
Interventions
Interventions:
*Risk Screen - Suicide Last Done: 02/20/25 12:13
*General Assessment Last Done: 02/20/25 12:13
*Neglect/Abuse Screening Last Done: 02/20/25 12:13
*ED- Fall Risk Assessment Last Done: 02/20/25 17:59
*ED COVID-19 Vaccine History Last Done: 02/20/25 17:59
*Nursing Disposition Last Done: 02/20/25 17:59
ED-Psychological Assessment Last Done: 02/20/25 12:13
Discharge Date and Time
Discharge Date/Time: 02/20/25 18:00
Print Language: ICELANDIC
[2025-02-20] MEDS: ATIVAN 1 MG PO (12:39)
== END 2025-02-20 18:00 ==
LOC: EMR 11:45
PROVIDERS: EMERGENCY PHYSICIAN Student in an Organized Health Care Education/Training Program; FAMILY PHYSICIAN Internal Medicine
DX: R45.851 Suicidal ideations (principal); F32.A Depression, unspecified; F41.9 Anxiety disorder, unspecified; I10 Essential (primary) hypertension; K21.9 Gastro-esophageal reflux disease without esophagitis
CPT/HCPCS: 99285